=== PATIENT | female | born 1985 | race Caucasian/White ===

== ENCOUNTER 2017-06-19 04:56 | Emergency (ER) | payer SELFPAY ==
[~2017-06-19] VITALS: Ht 165.1 cm; Wt 60.0 kg
[2017-06-19] MEDS ORDERED: EPINEPHRINE 1 MG/ML, 1ML ONE (05:04)
[2017-06-19] MEDS ORDERED: ONDANSETRON 2MG/ML, 2ML ONE (05:10)
[2017-06-19] MEDS ORDERED: DIPHENHYDRAMINE 50 MG/ML, 1ML ONE (05:17)
[2017-06-19] MEDS ORDERED: FAMOTIDINE 20 MG/2 ML ONE (05:17)
[2017-06-19] MEDS ORDERED: DEXAMETHASONE 4 MG/ML, 5ML ONE (05:17)
[2017-06-19] MEDS ORDERED: DEXAMETHASONE 4 MG/ML, 1ML IV ONE (05:30)
[2017-06-19] MEDS ORDERED: ONDANSETRON 2MG/ML, 2ML IVPush ONE (05:30)
[2017-06-19] MEDS ORDERED: EPINEPHRINE 1 MG/ML, 1ML IM ONE (05:30)
[2017-06-19] MEDS ORDERED: SODIUM CHLORIDE FLUSH 10ML SYR IVF ONE (05:30)
[2017-06-19] MEDS ORDERED: SODIUM CHLORIDE 0.9% 1,000ML IVBOLUS ONE (05:30)
[2017-06-19] MEDS ORDERED: FAMOTIDINE 20 MG/2 ML IVPush ONE (05:30)
[2017-06-19] MEDS ORDERED: DIPHENHYDRAMINE 50 MG/ML, 1ML IVPush ONE (05:30)
[2017-06-19 07:24] VITALS: BP 120/76
== END 2017-06-19 07:26 | disposition home or self-care (01) ==
LOC: ED 05:46
DX: T78.05XA Anaphylactic reaction due to tree nuts and seeds, initial encounter (principal); X58.XXXA Exposure to other specified factors, initial encounter; Y93.89 Activity, other specified; Y92.89 Other specified places as the place of occurrence of the external cause; Y99.8 Other external cause status
CPT/HCPCS: 96361; 96372; 96374; 96375; 99291; J0171; J1100; J1200; J2405; J7030; S0028

== ENCOUNTER 2018-01-03 15:32 | Emergency (ER) | payer OTHER ==
[~2018-01-03] VITALS: Ht 165.1 cm; Wt 67.7 kg
[2018-01-03 17:21] LABS: BASOPHILS # (AUTO) 0.02 x10^3/uL (0-0.1); BASOPHILS % (AUTO) 0 % (0-1); EOSINOPHILS # (AUTO) 0.23 x10^3/uL (0-0.4); EOSINOPHILS % (AUTO) 3 % (1-7); HCT (SEDRATE) 37.1 % (34.6-47.8); LYMPHOCYTES # (AUTO) 1.91 x10^3/uL (1-3.4); LYMPHOCYTES % (AUTO) 24 % (22-44); MD NO; MEAN CORPUSCULAR HGB CONC 33.8 g/dL (32.4-35.8); MEAN CORPUSCULAR VOLUME 91.7 fL (80-100); MEAN PLATELET VOLUME 8.3 fL (7.4-10.4); MONOCYTES # (AUTO) 0.72 x10^3/uL (0.2-0.8); MONOCYTES % (AUTO) 9 % (2-9); NEUTROPHILS # (AUTO) 4.97 x10^3/uL (1.8-6.8); NEUTROPHILS % (AUTO) 63 % (42-75); PLATELET COUNT 256 x10^3/uL (130-400); RED BLOOD COUNT 4.04 x10^6/uL (3.82-5.3); RED CELL DISTRIBUTION WIDTH 14.1 % (9.6-15.2)
[2018-01-03 17:22] LABS: ALANINE AMINOTRANSFERASE 19 U/L (12-78); ALBUMIN 3.5 g/dL (3.4-5.0); ANION GAP 3 mmol/L (5-15); CALCIUM 8.4 mg/dL (8.5-10.1); CHLORIDE 105 mmol/L (98-107)
[2018-01-03 17:25] LABS: ALKALINE PHOSPHATASE 63 U/L (45-117); BILIRUBIN,TOTAL 0.3 mg/dL (0.2-1.0); CREATININE 0.78 mg/dL (0.55-1.02); TOTAL PROTEIN 7.2 g/dL (6.4-8.2)
[2018-01-03 17:58] LABS: SEDIMENTATION RATE 31 mm/hr (0-20)
[2018-01-03 19:43] VITALS: BP 119/85
== END 2018-01-03 20:28 | disposition home or self-care (01) ==
LOC: ED 20:06
DX: L03.115 Cellulitis of right lower limb (principal); F17.200 Nicotine dependence, unspecified, uncomplicated
CPT/HCPCS: 36415; 80053; 84550; 85025; 85651; 99285